=== PATIENT | male | born 1970 | race Caucasian/White ===

== ENCOUNTER 2019-02-23 17:01 | Emergency (ER) | payer OTHER ==
[~2019-02-23] VITALS: Ht 182.9 cm; Wt 112.5 kg
[~2019-02-23 17:01] MED LIST: ALBU90OI6 INH; AZIT250 PO; BENZ100A PO; BUPR150T2 PO; CIPR250; DIPH50 PO; LISI20 PO; LISI5 PO; MEDICAL MARIJUANA; Monodox100 MG PO; PRED20 PO; Prednisone20 MG PO; QUET25 PO; Ventolin/Prove6.7 GM INH
[2019-02-23 19:07] LABS: BASOPHILS ABSOLUTE AUTO 0.04 K/mm3 (0.00-0.23); BASOPHILS PERCENT AUTO 0 % (0-2); EOSINOPHILS ABSOLUTE AUTO 0.06 K/mm3 (0.00-0.68); EOSINOPHILS PERCENT AUTO 1 % (0-6); Hematocrit 42.7 % (37.0-53.0); Hemoglobin 14.3 g/dL (13.5-17.5); IMMATURE GRAN ABSOLUTE AUTO 0.04 K/mm3 (0.00-0.10); IMMATURE GRAN PERCENT AUTO 0 % (0-1); LYMPHOCYTES ABSOLUTE AUTO 2.27 K/mm3 (0.84-5.20); LYMPHOCYTES PERCENT AUTO 22 % (21-46); MONOCYTES ABSOLUTE AUTO 0.89 K/mm3 (0.16-1.47); MONOCYTES PERCENT AUTO 9 % (4-13); Mean Corpuscular HGB 30.8 pg (26.0-34.0); Mean Corpuscular HGB Conc 33.5 g/dL (31.5-36.5); Mean Corpuscular Volume 92 fL (80-100); Mean Platelet Volume 10.2 fL (9.1-12.4); NEUTROPHILS ABSOLUTE AUTO 6.84 K/mm3 (1.96-9.15); NEUTROPHILS PERCENT AUTO 67 % (41-73); Platelet Count 189 K/mm3 (150-400); RDW Standard Deviation 43.9 fL (35.1-46.3); Red Blood Cell Count 4.65 M/mm3 (4.30-5.90); White Blood Cell Count 10.14 K/mm3 (4.00-11.30)
[2019-02-23 19:23] LABS: Alanine Aminotransfer (ALT/SGP 50 U/L (12-78); Albumin, Blood 3.7 g/dL (3.4-5.0); Albumin/Globulin Ratio 1.1 (0.8-1.8); Alk Phos 70 U/L (50-136); Anion Gap 7 mmol/L (6-16); Aspartate Aminotrans (AST/SGOT 37 U/L (12-37); Bilirubin, Total 0.6 mg/dL (0.1-1.0); Blood Urea Nitrogen 19 mg/dL (8-24); Bun/Creatinine Ratio 19.7 (12.0-20.0); CO2, Blood 27 mmol/L (21-32); Calcium, Blood 8.6 mg/dL (8.5-10.1); Chloride, Blood 106 mmol/L (98-108); Creatinine, Blood 0.97 mg/dL (0.60-1.20); Globulin, Blood 3.5 g/dL (2.2-4.0); Glomerular Filtration Rate >60 (60-); Glucose, Blood 146 mg/dL (70-99); Potassium, Blood 4.1 mmol/L (3.5-5.5); Sodium, Blood 140 mmol/L (136-145); Total Protein, Blood 7.2 g/dL (6.4-8.2)
== END 2019-02-23 20:49 | disposition home or self-care (01) ==
LOC: ER 17:01
PROVIDERS: Emergency Medicine
DX: K61.0 Anal abscess (principal); I10 Essential (primary) hypertension
CPT/HCPCS: 10160; 36415; 72193; 80053; 85025; 99284-25; Q9967

== ENCOUNTER 2019-02-28 06:57 | Day surgery (SDC) | payer OTHER ==
[~2019-02-28] VITALS: Ht 178 cm; Wt 110.2 kg
[~2019-02-28 06:57] MED LIST changes: +ACET500 PO; +ATOR40TA PO; +CLON.5 PO; +DIVA500ER PO; +PRAZ2 PO
--- NOTE | 2019-02-28 08:38 | NUR ---
History, Chart, Medications and Allergies reviewed before start of procedure.Patient confirms NPO status and agrees with scheduled surgery. PT VERY PAINFUL. INTERMITTNETLY MOANING. TOLERATED IV SOMEWHAT POORLY, MOANING. NOT TAKING PAIN MEDS AT HOME, REPORTS TYLENOL USE ONLY ALONG WITH MEDICAL MARIU[facility]NA.
--- NOTE | 2019-02-28 09:57 | NUR ---
02/28/19 0957 Bettina Guzman NO PREOP ANTIBIOTICS ORDERED
--- NOTE | 2019-02-28 13:00 | NUR ---
PT VERBALIZES READY TO GET DRESSED AND GO HOME. Discharge instructions reviewed with patient. Patient verbalizes understanding. Copy given to patient to take home. RX GIVEN TO PT. PT AMBULATED TO BATHROOM.
--- NOTE | 2019-02-28 13:07 | NUR ---
PT AMBULATED OUT OF DEPARTMENT to private car for ride home.
== END 2019-02-28 13:07 | disposition home or self-care (01) ==
LOC: ORSCMMR 06:57 → ORD 07:30 → ORSCMMR 13:07
PROVIDERS: Surgery
PROC: 0D9P0ZZ Drainage of Rectum, Open Approach (ICD-10-PCS; principal; 2019-02-28 09:30)
DX: K61.1 Rectal abscess (principal); I10 Essential (primary) hypertension; E78.5 Hyperlipidemia, unspecified; K21.9 Gastro-esophageal reflux disease without esophagitis; Z79.899 Other long term (current) drug therapy
CPT/HCPCS: 93005; 93010; A9270-GY; J2250; J2704; J3010; J7120

== ENCOUNTER 2019-03-02 14:56 | Emergency (ER) | payer OTHER ==
[~2019-03-02] VITALS: Ht 182.9 cm; Wt 112.5 kg
[2019-03-02] MEDS ORDERED: CLON1 PO (15:14)
[2019-03-02] MEDS ORDERED: Norco 5-325 Ta1 EACH PO (16:57)
== END 2019-03-02 17:18 | disposition home or self-care (01) ==
LOC: ER 14:56
DX: Z48.817 Encounter for surgical aftercare following surgery on the skin and subcutaneous tissue (principal); I10 Essential (primary) hypertension; F31.9 Bipolar disorder, unspecified; Z79.899 Other long term (current) drug therapy
CPT/HCPCS: 36415; 96374; 99282-25; J1170

== ENCOUNTER → 2019-05-02 | Outpatient (CLI) | payer OTHER ==
[~2019-05-02] MED LIST changes: +CLON1 PO; +Norco 5-325 Ta1 EACH PO
[2019-05-02 14:47] LABS: Microalb/Creat Ratio UR, Rand 4.802 mg/g (0.000-30.000); Microalbumin, Random Urine 6.29 mg/L (0.000-20.000)
== END ==
LOC: LAB SHORT 11:03 → LAB 11:03
PROVIDERS: Family Medicine
DX: R53.83 Other fatigue (principal)
CPT/HCPCS: 82043; 82570

== ENCOUNTER 2021-06-05 17:59 | Emergency (ER) | payer OTHER ==
[~2021-06-05] VITALS: Ht 182.9 cm; Wt 108.4 kg
[~2021-06-05 17:59] MED LIST changes: +PRINIVIL10 MG PO
[2021-06-05] MEDS ORDERED: CLON.5 PO (18:09)
== END 2021-06-05 18:14 | disposition home or self-care (01) ==
LOC: ER 17:59
DX: Z76.0 Encounter for issue of repeat prescription (principal); F32.9 Major depressive disorder, single episode, unspecified; I10 Essential (primary) hypertension; Z85.47 Personal history of malignant neoplasm of testis; Z79.899 Other long term (current) drug therapy
CPT/HCPCS: 99281

== ENCOUNTER 2024-09-23 07:16 | Day surgery (SDC) | payer OTHER ==
[~2024-09-23] VITALS: Ht 182.9 cm; Wt 104.6 kg
[2024-09-23] VITALS (18 sets, daily range): BP systolic 133–170; BP diastolic 84–118
[~2024-09-23 07:16] MED LIST changes: +CHLO25B PO; +COLCHICINE0.6 MG PO; +KLONOPIN PO; +Lactated Ringer's 1,000 ML IV SCH
[2024-09-23] MEDS ORDERED: propofoL 40 ML IV ONE (07:53)
[2024-09-23] MEDS ORDERED: Midazolam HCl 1MG / ML 2ML Vial ONE (07:58)
--- NOTE | 2024-09-23 08:13 | NUR ---
09/23/24 0813 Ric Salas CONFIRMED AND REVIEWED H&P, MEDCICATIONS, ALLERGIES, MEDICAL HISTORY, RESPIRATORY HISTORY, VITAL SIGNS, 3-LEAD EKG, CONSENTS, AND PHYSICIAN ORDERS. PATIENT CONFIRMS NPO STATUS AND AGREES WITH SCHEDULED PROCEDURE. MONITOR INTACT WITH CONTINUOUS PULSE OXIMETRY, CAPNOGRAPHY, 3-LEAD EKG, INTERMITTENT BP. SUPPLEMENTAL O2 TO BE TITRATED THROUGHOUT PROCEDURE TO MAINTAIN O2 SATURATION ABOVE 90%. PATIENT DETERMINED TO BE ASA APPROPRIATE FOR PROPOFOL SEDATION PRIOR TO START OF PROCEDURE BY DR. ALBERTO.
--- NOTE | 2024-09-23 09:07 | NUR ---
Discharge instructions reviewed with patient. Patient verbalizes understanding. Copy given to patient to take home. Patient States Post-Procedure ride home has been arranged. Discharged via wheelchair to private car for ride home.
== END 2024-09-23 09:08 | disposition home or self-care (01) ==
LOC: ORSCMMR 07:16 → ORD 08:00 → ORSCMMR 08:00
PROVIDERS: Internal Medicine Gastroenterology
PROC: 0DBN8ZX Excision of Sigmoid Colon, Via Natural or Artificial Opening Endoscopic, Diagnostic (ICD-10-PCS; principal; 2024-09-23 08:00)
PROC: 0DBP8ZX Excision of Rectum, Via Natural or Artificial Opening Endoscopic, Diagnostic (ICD-10-PCS; principal; 2024-09-23 08:00)
DX: K62.5 Hemorrhage of anus and rectum (principal); D12.5 Benign neoplasm of sigmoid colon; K62.1 Rectal polyp; R19.5 Other fecal abnormalities; M1A.9XX1 Chronic gout, unspecified, with tophus (tophi); I10 Essential (primary) hypertension; E78.00 Pure hypercholesterolemia, unspecified; Z79.899 Other long term (current) drug therapy
CPT/HCPCS: 88305; J2250; J2704; J7120

== ENCOUNTER → 2024-12-24 | Outpatient (CLI) | payer OTHER ==
[~2024-12-24] MED LIST changes: -Lactated Ringer's 1,000 ML IV SCH
== END | disposition home or self-care (01) ==
LOC: LAB 13:25 → LAB SHORT 13:25
DX: L03.113 Cellulitis of right upper limb (principal)
CPT/HCPCS: 87070; 87147; 87205